=== PATIENT | female | born 1990 | race Caucasian/White ===

== ENCOUNTER 2017-11-22 14:05 | Outpatient (CLI) | payer OTHER, SELFPAY ==
[2017-11-22 14:35] VITALS: BMI 40.3
[2017-11-22 14:58] LABS: ROM Internal Control Test YES-OK TO RESULT pt. (Internal QC); ROM Patient Test Negative (Negative)
--- NOTE | 2017-11-30 07:12 | OB.TRI.NOTE ---
History of Present Illness Reason For Visit: R/O LABOR Home Medications Medication Instructions Recorded Vits [Prenatabs FA ] 1 tab PO DAILY 11/14/17 Tums 1 tab PO PRN PRN 11/14/17 Fluoxetine [Prozac] 40 mg PO DAILY 11/22/17 Allergies No Known Allergies Allergy (Verified 11/14/17 16:11) - Pertinent Past Medical History Pertinent Past Medical History: 36 week intrauterine presents with transient contractions. NST - FHR Rate Baby A NST Reactive:: Yes Impression/Plan Transient contractions not in labor. Reactive nonstress test. No evidence of rupture of membranes as ROM plus test was negative. No cervical change so will release to home with routine follow-up.
== END 2017-11-22 15:26 | disposition home or self-care (01) ==
LOC: WPOUT 14:22 → WP 14:23
PROVIDERS: Visit Provider Obstetrics & Gynecology
DX: Z34.93 Encounter for supervision of normal pregnancy, unspecified, third trimester (principal)
CPT/HCPCS: 59025; 59050; 84112; 99218; G0378

== ENCOUNTER 2017-12-14 10:11 | Inpatient (IN) | payer OTHER, SELFPAY ==
[2017-12-07 09:32] VITALS: BMI 41.2
[2017-12-14] VITALS (16 sets, daily range): BP systolic 107–142; BP diastolic 39–74; PULSE 61–90; RESP 15–20; TEMP 36.4–37.2; O2SAT 95–99; BMI 41.5
[2017-12-14] MEDS: Lactated Ringers 1,000 ML 999 ML IV (10:55)
--- NOTE | 2017-12-14 11:20 | NURSING ---
1000- Pt admitted to room 006. for repeat c/s and BPS. VS taken, afebrile. FHR 151.
[2017-12-14 11:21] LABS: Hematocrit 31.7 % (37-47); Hemoglobin 10.3 g/dl (12.0-15.0); Mean Corp Hgb Conc 32.5 g/gl (32-36); Mean Corpuscular Hgb 27.6 pg (27.0-32.0); Mean Platelet Vol. 9.3 fl (6.2-12.0); Platelet Count 234 K/mm3 (150-450); RBC Distribution Width SD 42.1 fl (35.1-43.9); Red Blood Count 3.73 M/mm3 (4.2-5.4); Scan Indicated on CBC? Y/N NO; White Blood Count 11.7 K/mm3 (4.4-11.0)
[2017-12-14 11:31] LABS: Prothrombin Time (Protime)PT. 12.7 SECONDS (11.7-14.9)
--- NOTE | 2017-12-14 11:31 | NURSING ---
1115- Clipper prep to lower abdomen. Skin intact. Bilateral SKD's on with explanation given, pt verbalizes understanding.
[2017-12-14 11:32] LABS: Partial Thromboplast Time 24.7 Seconds (24.1-36.2)
[2017-12-14] MEDS: Sodium Citrate/Citric Acid 30 ML UDC PO (11:44)
[2017-12-14] MEDS: Lactated Ringers 1,000 ML 150 ML IV (11:44)
[2017-12-14] MEDS: Oxytocin 30 units/NS 500 ml 30 UNITS/500 ML IV.SOLN 167 UNITS IV (12:28)
--- NOTE | 2017-12-14 13:02 | PCM.OB.CSR ---
- Problem List (1) Previous delivery affecting , delivered Status: Chronic Delivery Classification: Scheduled Final MAGO: 12/20/17 Final MAGO Source: US <20 weeks Gestational age: 39 Weeks and 1 Days Indications for : - - Two previous deliveries, requests sterilization Description of Procedure: Delivery of a live female with apgars 8/9. Clear amniotic fluid. Uterus, ovaries, and fallopian tubes normal. Some scarring of bladder to anterior lower uterine segment. Amniotic Membrane Rupture Type: Artificial Amniotic Fluid Description: Clear Placenta Disposition: [facility] Drain: Dickinson to straight drain Fluids Replaced: 1500cc Cord Entanglement: None Nuchal Cord Compression: Without compression Cord Vessel Description: 3 Vessels Esitmated Blood Loss (ml): 500cc Gender: Female (1 minute): 8 (5 minute): 9 Delayed cord clamping: Yes Pre-op Antibiotic Given: Ancef 2 grams IV x1 Pt instructed on risks of surgery: Bleeding, Need for Future C-Sections, Failure Rate of 1 to 2%, Injury to surrounding structure(s) including bowel and bladder Complications: None - Admit VTE Documentation VTE Present on Admission: No VTE Mechan Device Prophylaxis: SCD's VTE Pharm Prophylaxis ordered?: No
[2017-12-14] MEDS: Ketorolac 30 MG/ML Syringe IV ×3 (13:05→23:57)
--- NOTE | 2017-12-14 13:06 | OP.PCM_ITS ---
Problem List (1) Previous delivery affecting , delivered Status: Chronic Report of Operation Date of Procedure: 12/14/17 Pre-Operative Diagnosis: previous delivery x two, requests permanent sterilization Post-Operative Diagnosis: same Surgery/Procedure Performed:: Repeat low transverse section, bilateral salpingectomy Description of Surgical Findings:: Normal appearing uterus, ovaries, and fallopian tubes. Minimal scarring of the bladder to the anterior lower uterine segment. Delivery of a live with apgars8/9. Normal appearing placenta. heel pricker: Theron Colin Type of Anesthesia:: Spinal Anesthesiologist: Eddie Escobar Specimen's removed: none Drains: fam Estimated Blood Loss (mL): 500cc Fluids Replaced: 1500cc Description of Procedure: Ginna was taken to the OR with IV running. She reinforced her desire for permanent sterilization prior to going to the OR. She was given two grams of Ancef intravenously prior to the procedure for prophylaxis. Spinal anesthesia was introduced without complication. She was then prepped and draped in the supine position with a leftward displacement. A fam catheter was placed aseptically. Once anesthesia was deemed adequate a Pfannensteil incision was made through the previous scar. The underlying subcutaneous tissue was dissected down to the level of the fascia using sharp and blunt dissection. The fascia was then incised in the midline and this incision was extended bilaterally with the Higgins scissors. The upper fportion of the facial defect was then grasped with two Tripp clamps, elevated and the underlying rectus muscles dissected off with blunt and sharp dissection. The fascia was similarly dissected off the lower rectus muscles. The rectus muscles were in the midline the peritoneum identified and entered bluntly. The peritoneal defect was extended using blunt retraction. A bladder blade was then placed. The vesicouterine peritoneum was then identified, entered sharply , and a bladder flap was created. The bladder blade was replaced. The lower uterine segment was then incised in a transverse fashion. Once entered, the uterine defect was entended using lateral and superior traction. The membranes were then ruptured. The baby's head was then delivered atraumatically. The nose and mouth were suctioned with a bulb suction. The body was delivered easily. Delayed cord clamping was employed. The cord was then clamped and cut. The baby was handed off the waiting nursing staff for evaluation. The placenta was then delivered manually. The uterus was exteriorized and cleared of all clot and membranes. The uterine defect was then closed in two layers with #1 Vicryl. The posterior cul de sac and gutters were cleared of all clot and fluid. The uterus was returned to the abdomen. The uterine defect was reinspected and found to be hemostatic. The peritoneum was then closed with a running stitch of 2-0 Vicryl. The rectus muscles were reapproximated with interrupted sutures of 0-Vicryl. The fascia was closed with a running suture of #1 Stratofix. The subcutaneous tissue was clsoed with 2-0 Vicryl. The skin was closed with a subcuticular stitch of 4-0 monocryl. SPonge, lap, and needle counts were correct. The patinet was taken to the recovery room in stable condition. Grafts/Implants Used: none - Complications none - Admit VTE Documentation VTE Present on Admission: No VTE Mechan Device Prophylaxis: SCD's VTE Pharm Prophylaxis ordered?: No
[2017-12-14] MEDS: Lactated Ringers 1,000 ML 100 ML IV ×2 (13:32→23:57)
--- NOTE | 2017-12-14 13:42 | FALS_PTH ---
PATIENT: RACHAEL JORDAN LOC: [facility] U#:[id number] AGE/SX: 27/F ROOM: WP006 RE12/14/[address]: Dr. Shashi Esteban MD : 1990 BED: 1 DIS: 12/16/2017 SPEC #: [id number] RECD: 12/15/17 10:52 STATUS: ASH NASEEM #: [id number] AVELINO: 12/14/17 13:[address]: Shashi Esteban DEPT: SURGICAL PATHOLOGY RECD BY: Rachana Robbins Tissues: Fallopian tube Procedures: Surgery Specimen Level II HEADER OPERATION: Tubal ligation PRE-OP DIAGNOSIS: Tubal ligation TISSUE SUBMITTED: Fallopian tube, suture in left tube MICROSCOPIC DIAGNOSIS Bilateral fallopian tubes: Bilateral fallopian tubes including fimbrial ends, no pathologic diagnosis. ALLEN:bib 12/16/17 MICROSCOPIC DESCRIPTION Slides are reviewed. GROSS DESCRIPTION Received in fixative is one container labeled with the patient's name and designated bilateral fallopian tubes. The specimen consists of two fallopian tubes including fimbrial ends. The left fallopian tube is identified by a suture. Both fallopian tubes are similar in appearance. The average length of the fallopian tubes is 5 cm with average diameter of 0.7 cm. The fimbriated ends are normal in appearance. No mass lesions are identified. Inventory Control Supervisor sections are submitted as follows: 1 ? right fallopian tube, 2 ? left fallopian tube. / AM:bib 12/15/17 TC:4 CPT: 42678 x2
[2017-12-14 15:34] LABS: Pathology Specimen OB SEE PATHOLOGY REPORT
[2017-12-14] MEDS: FLUoxetine 20 MG Capsule 40 MG PO (17:58)
[2017-12-14] MEDS: Cefazolin 1 GM/50 ML BAG IV (19:58)
[2017-12-14] MEDS: Senna/Docusate Sodium 1 Tablet PO (23:57)
[2017-12-15] VITALS (10 sets, daily range): BP systolic 102–128; BP diastolic 59–76; PULSE 78–96; RESP 16–18; TEMP 36.3–37; O2SAT 96–99
[2017-12-15] MEDS: Cefazolin 1 GM/50 ML BAG IV (03:57)
[2017-12-15 05:16] LABS: Hematocrit 27.5 % (37-47); Hemoglobin 8.8 g/dl (12.0-15.0); Mean Corpuscular Hgb 27.3 pg (27.0-32.0); Mean Corpuscular Volume 85.4 fL (81-99); Mean Platelet Vol. 9.2 fl (6.2-12.0); Platelet Count 212 K/mm3 (150-450); RBC Distribution Width SD 42.1 fl (35.1-43.9); Red Blood Count 3.22 M/mm3 (4.2-5.4); White Blood Count 12.3 K/mm3 (4.4-11.0)
[2017-12-15 05:28] LABS: Scan Indicated on CBC? Y/N NO
[2017-12-15] MEDS: Ketorolac 30 MG/ML Syringe IV ×3 (05:39→17:55)
[2017-12-15] MEDS: 0.9% Saline Lock 10 ML Syringe IV ×2 (08:55→17:52)
--- NOTE | 2017-12-15 09:41 | PCM.PN.OB ---
Subjective: SOme incisional soreness. Bleeding light. Bottle feeding. No N/V. Objective: Afeb VSS Hgb stable. Urine output adequate. - Physical Exam General: Alert, Oriented x3, Cooperative, No apparent distress Lungs: Clear to auscultation, Normal air movement Cardiovascular: Regular rate, Regular Rhythm Abdomen: Soft, Non-Distended, - - incision dressing dry, no erythema Extremities: No edema, No Calf Tenderness Skin: No rashes Neurological: Neuro grossly intact Psych/Mental Status: Normal Affect Comment: lochia light Vital Signs Temp Pulse Resp BP Pulse Ox 97.5 F L 88 18 121/70 H 96 12/15/17 08:00 12/15/17 08:00 12/15/17 08:00 12/15/17 08:00 12/15/17 08:00 Oxygen Delivery Method Room Air Weight: 257 lb 0.944 oz Body Mass Index (BMI) 41.5 Intake and Output for Last 24 Hours 12/13/17 12/14/17 12/15/17 23:59 23:59 23:59 Intake Total 3468 / 3468 2500 / 2500 Output Total 1000 / 1000 1999 / 1999 Balance 2468 / 2468 500 / 500 Laboratory Tests Past 24 Hrs 12/14/17 12/14/17 12/14/17 10:55 10:55 10:55 WBC 11.7 H RBC 3.73 L Hgb 10.3 L Hct 31.7 L MCV 85.0 MCH 27.6 MCHC 32.5 RDW 14.0 RDW Differential 42.1 Plt Count 234 MPV 9.3 PT 12.7 INR 1.0 APTT 24.7 Blood Type A POSITIVE Antibody Screen NEGATIVE 12/15/17 04:55 WBC 12.3 H RBC 3.22 L Hgb 8.8 L Hct 27.5 L MCV 85.4 MCH 27.3 MCHC 32.0 RDW 14.0 RDW Differential 42.1 Plt Count 212 MPV 9.2 PT INR APTT Blood Type Antibody Screen Assessment/Plan Doing well on POD 1. Continue routine po care.
--- NOTE | 2017-12-15 09:48 | DCINST_ITS ---
Discharge Diet: No Restrictions Discharge Activity: Return to Normal Activity, May Not Drive, May not drive while taking narcotic pain medications., May Shower Return to work on:: 02/14/18 May shower in (days): 0 May resume sexual activity in: 4-6 weeks Call your doctor if your incision/area has: Sudden Increased Bleeding, Increased Pain/ Swelling, Increased Redness, Foul Smelling Discharge, Swelling at the incision site Call your doctor if you observe: Fever of 101 or Higher, Inability to urinate, Inability to have a bowel movement, Using more than one pad per hour, Shortness of breath, Chest pain, Calf discomfort, Uncontrolled pain Remove Dressing in (days):: 2 Cleanse incision/area with: Soap & Water Additional Instructions: If you experience any of the following, contact your healthcare provider. * Bleeding that soaks a pad every hour for 2 hours * Fever 100.4 or higher * Unrelieved incision or abdominal pain * Swelling, redness, discharge or bleeding from your incision or episiotomy site * Your incision begins to separate * Problems urinating (including inability to urinate or burning while urinating) . * Visual changes * Severe headache * Flu-like symptoms * Pain or redness in one of both of your breasts * Pain, warmth, tenderness or swelling in your legs, especially the calf area * Frequent nausea and vomiting * Symptoms of depression or anxiety If you experience any of the following, call 911 or go to the nearest Emergency Room. * Chest pain * Problems breathing * Seizure activity * Partial or complete paralysis of a body part, slurred speech, weakness or drooping of the face, or a sudden inability to walk or hold your balance Allergies/Adverse Reactions: Allergies No Known Allergies Allergy (Verified 11/14/17 16:11) Medications to take at Discharge Vits [Prenatabs FA ] 1 tab PO DAILY 11/14/17 Tums 1 tab PO PRN PRN 11/14/17 Fluoxetine [Prozac] 40 mg PO DAILY 11/22/17 Ibuprofen [Motrin] 800 mg PO TID PRN PRN #30 tab 12/15/17 Oxycodone [Oxyir] 5 mg PO Q4H PRN PRN 7 Days #28 tab 12/15/17 The following prescriptions were given: Oxycodone [Oxyir] 5 mg PO Q4H PRN PRN 7 Days #28 tab PRN Reason: Pain Ibuprofen [Motrin] 800 mg PO TID PRN PRN #30 tab PRN Reason: pain or cramping Follow-Up: Call to make an appointment with your doctor for an incision check in 1-2 weeks. You will also need a 6 week post- follow up appointment. Please Follow Up With: Shashi Esteban MD When: one week Proposed Discharge Date: 12/16/17
[2017-12-15] MEDS: Prenatal Vits Tablet 1 TABLET PO (12:08)
[2017-12-15] MEDS: oxyCODONE 5 MG Tablet PO (14:36)
[2017-12-15] MEDS: FLUoxetine 20 MG Capsule 40 MG PO (17:51)
[2017-12-15] MEDS: Acetaminophen 500 MG Tablet 1000 MG PO (20:38)
[2017-12-16] MEDS: 0.9% Saline Lock 10 ML Syringe IV ×2 (00:05→05:48)
[2017-12-16] MEDS: Ketorolac 30 MG/ML Syringe IV ×2 (00:05→05:48)
[2017-12-16] MEDS: oxyCODONE 5 MG Tablet PO (02:14)
[2017-12-16 02:15] VITALS: BP 131/74; PULSE 90; RESP 16; TEMP 36.5; O2SAT 96
--- NOTE | 2017-12-16 07:41 | PCM.PN.OB ---
Subjective: Pain reasonably controlled. voiding, had BM. Bleeding appropriate. - Physical Exam General: Alert, Oriented x3, Cooperative, No apparent distress Lungs: Clear to auscultation, Normal air movement Cardiovascular: Regular rate, Regular Rhythm Abdomen: Soft, Non Tender, Non-Distended, - - Fundus firm nontender. Incision dressing dry. Extremities: No edema, No Calf Tenderness Skin: No rashes Neurological: Neuro grossly intact Psych/Mental Status: Normal Affect Comment: Lochia light Vital Signs Temp Pulse Resp BP Pulse Ox 97.7 F L 90 16 131/74 H 96 //18 02:15 /18 02:15 12/16/17 02:15 12/16/17 02:15 12/16/17 02:15 Oxygen Delivery Method Room Air Weight: 257 lb 0.944 oz Body Mass Index (BMI) 41.5 Intake and Output for Last 24 Hours 02/06/18 02/07/18 //18 23:59 23:59 23:59 Intake Total 3468 / 3468 2500 / 2500 Output Total 1000 / 1000 4650 / 4650 Balance 2468 / 2468 -2150 / -2150 Assessment/Plan Doing well on POD#2. Cleared for discharge home today. Home going instructions and warnings given.
--- NOTE | 2017-12-16 07:44 | PCM.DC.SUM ---
Discharge Date and Diagnosis Date of Admission: 12/14/17 Date of Discharge: 12/16/17 - Primary Discharge Diagnosis S/P repeat C/S and bilateral salpingectomy - Secondary Discharge Diagnosis Chronic Problems Previous delivery affecting , delivered (Chronic) Hospital Course and Treatment Consultations 12/14/17 10:19 Consult: Anesthesia Routine Comment: Reason For Exam: LABOR Operations: - - Repeat LTCS and bilateral salpingectomy Summary of Care Provided: The patient is a 27 year old F [admitted for scheduled C/S at term. C/S and bilateral salpingectomy performed without complication. Post operative course unremarkable. Discharged home on POD#2.] Discharge Diet: No Restrictions Discharge Activity: Return to Normal Activity, May Not Drive, May not drive while taking narcotic pain medications., May Shower Return to work on:: 02/14/18 May shower in (days): 0 May resume sexual activity in: 4-6 weeks Call your doctor if your incision/area has: Sudden Increased Bleeding, Increased Pain/ Swelling, Increased Redness, Foul Smelling Discharge, Swelling at the incision site Call your doctor if you observe: Fever of 101 or Higher, Inability to urinate, Inability to have a bowel movement, Using more than one pad per hour, Shortness of breath, Chest pain, Calf discomfort, Uncontrolled pain Remove Dressing in (days):: 2 Cleanse incision/area with: Soap & Water Home Medications: Medications to take at Discharge Vits [Prenatabs FA ] 1 tab PO DAILY 11/14/17 Tums 1 tab PO PRN PRN 11/14/17 Fluoxetine [Prozac] 40 mg PO DAILY 11/22/17 Ibuprofen [Motrin] 800 mg PO TID PRN PRN #30 tab 12/15/17 Oxycodone [Oxyir] 5 mg PO Q4H PRN PRN 7 Days #28 tab 12/15/17 Following Prescrptions Were Given to Patient: Oxycodone [Oxyir] 5 mg PO Q4H PRN PRN 7 Days #28 tab PRN Reason: Pain Ibuprofen [Motrin] 800 mg PO TID PRN PRN #30 tab PRN Reason: pain or cramping Please Follow Up With: Shashi Esteban MD When: one week Disposition: Home Minutes spent on discharge:: 15 Patient Condition:: Good Meaningful Use Info Meaningful Use Diagnoses (Choose all that apply): None applicable
--- NOTE | 2017-12-16 07:47 | PCM.OPRPT ---
Problem List (1) Previous delivery affecting , delivered Status: Chronic Report of Operation Date of Procedure: 12/14/17 Pre-Operative Diagnosis: previous delivery x two, requests permanent sterilization Post-Operative Diagnosis: same Surgery/Procedure Performed:: Repeat low transverse section, bilateral salpingectomy Description of Surgical Findings:: Normal appearing uterus, ovaries, and fallopian tubes. Minimal scarring of the bladder to the anterior lower uterine segment. Delivery of a live with apgars8/9. Normal appearing placenta. rn clinical quality: Theron Colin Type of Anesthesia:: Spinal Anesthesiologist: Eddie Escobar Specimen's removed: none Drains: fam Estimated Blood Loss (mL): 500cc Fluids Replaced: 1500cc Description of Procedure: This is an addendum to previous operative report of operation on 12/14/16. After delivery attention was directed to performing a bilateral salpingectomy. The left tube was grasped with a [place] clamp elevated and the mesosalpinx clamped with two Madyson clamps. The tube was then amputated, and the mesosalpinx then tied with 2-0 Vicryl ties. The attachment at the cornua was then clamped cut and free tied with 2-0 vicryl. The right fallopian tube was amputated in a similar fashion. Hemostasis was assured at the pedicle sites. - Complications none - Admit VTE Documentation VTE Present on Admission: No VTE Mechan Device Prophylaxis: SCD's VTE Pharm Prophylaxis ordered?: No
--- NOTE | 2017-12-16 07:52 | OP.PCM_ITS ---
Problem List (1) Previous delivery affecting , delivered Status: Chronic Report of Operation Date of Procedure: 12/14/17 Pre-Operative Diagnosis: previous delivery x two, requests permanent sterilization Post-Operative Diagnosis: same Surgery/Procedure Performed:: Repeat low transverse section, bilateral salpingectomy Description of Surgical Findings:: Normal appearing uterus, ovaries, and fallopian tubes. Minimal scarring of the bladder to the anterior lower uterine segment. Delivery of a live with apgars8/9. Normal appearing placenta. hardness inspector: Theron Colin Type of Anesthesia:: Spinal Anesthesiologist: Eddie Escobar Specimen's removed: none Drains: fam Estimated Blood Loss (mL): 500cc Fluids Replaced: 1500cc Description of Procedure: This is an addendum to previous operative report of operation on 12/14/16. After delivery attention was directed to performing a bilateral salpingectomy. The left tube was grasped with a [place] clamp elevated and the mesosalpinx clamped with two Madyson clamps. The tube was then amputated, and the mesosalpinx then tied with 2-0 Vicryl ties. The attachment at the cornua was then clamped cut and free tied with 2-0 vicryl. The right fallopian tube was amputated in a similar fashion. Hemostasis was assured at the pedicle sites. - Complications none - Admit VTE Documentation VTE Present on Admission: No VTE Mechan Device Prophylaxis: SCD's VTE Pharm Prophylaxis ordered?: No
[2017-12-16 08:00] VITALS: BP 127/75; PULSE 87; RESP 16; TEMP 36.3; O2SAT 96
[2017-12-16] MEDS: Ibuprofen 600 MG Tablet PO (11:44)
[2017-12-16] MEDS: Prenatal Vits Tablet 1 TABLET PO (11:45)
--- NOTE | 2017-12-16 11:52 | NURSING ---
vitals and assessment completed by student reviewed and I agree with her findings after seeing and assessing the patient myself. See RN charting.
[2017-12-16 11:57] VITALS: BP 121/75; PULSE 83; RESP 16; TEMP 36.2
== END 2017-12-16 13:25 | disposition home or self-care (01) | DRG 766 ==
PROVIDERS: Obstetrics & Gynecology; Admitting Provider Obstetrics & Gynecology; Visit Provider Obstetrics & Gynecology
DX: O34.219 Maternal care for unspecified type scar from previous cesarean delivery (principal); O99.333 Smoking (tobacco) complicating pregnancy, third trimester; Z30.2 Encounter for sterilization; Z37.0 Single live birth; Z3A.39 39 weeks gestation of pregnancy
CPT/HCPCS: 85027; 85610; 85730; 86850; 86900; 88302; 99218; J7120; A4216; G0378; J2405

== ENCOUNTER → 2018-07-13 08:15 | Outpatient (CLI) | payer OTHER, SELFPAY ==
[2018-07-20 12:12] LABS: HPV Reflexed? NOT INDICATED
== END ==
PROVIDERS: Visit Provider Obstetrics & Gynecology
DX: Z12.4 Encounter for screening for malignant neoplasm of cervix (principal)
CPT/HCPCS: 88175; G0145